=== PATIENT | female | born 1980 | race Caucasian/White ===

== ENCOUNTER 2021-06-11 03:14 | Emergency (ER) | payer MEDICAID ==
[~2021-06-11] VITALS: Ht 157.5 cm; Wt 99.8 kg
[~2021-06-11 03:14] MED LIST: ALB5IS; ATEN-60; OMEP20TA44
[2021-06-11] MEDS ORDERED: PANTOPRAZOLE 40 MG/10 ML VIAL INJ IV ONE (03:30)
[2021-06-11] MEDS ORDERED: SODIUM CHLORIDE 0.9% 1,000 ML IV ONE (03:30)
[2021-06-11] MEDS ORDERED: ONDANSETRON HCL 4 MG/2 ML VIAL IV ONE (03:30)
[2021-06-11] MEDS ORDERED: LORazepam 2MG/ML-1ML VIAL ONE (03:47)
[2021-06-11] MEDS ORDERED: HALOPERIDOL LACTATE 5 MG/ML INJ VIAL IV ONE (04:00)
[2021-06-11 05:06] LABS: Albumin 3.3 g/dL (3.4-5.0); BUN/Creatinine Ratio 8.8; Calcium 9.5 mg/dL (8.5-10.1); Potassium 5.5 mmol/L (3.5-5.1)
[2021-06-11 05:09] LABS: Bilirubin, Total 0.7 mg/dL (0.2-1.0); Total Protein 6.7 g/dL (6.4-8.2)
[2021-06-11] MEDS ORDERED: ONDA-144 PO (05:53)
[2021-06-11 06:30] VITALS: BP 135/75
[2021-06-11 06:47] LABS: Basophils # (auto) 0 10 ^3/uL (0-0.2); Basophils % (auto) 0.3 % (0.0-2.0); Eosinophils # (auto) 0 10 ^3/uL (0-0.8); Hemoglobin 14.6 g/dL (12.2-16.2); Lymphocytes % (auto) 8.4 % (10.0-50.0); Mean Corpuscular Hemoglobin 29.9 pg (28.0-32.0); Mean Corpuscular Hgb Conc. 33.1 g/dL (32.0-36.0); Mean Corpuscular Volume 90.4 fL (80.0-100.0); Monocytes # (auto) 1.3 10 ^3/uL (0-1.3); Monocytes % (auto) 10.8 % (0.0-12.0); Neutrophils # (auto) 9.4 10 ^3/uL (1.6-8.6); Neutrophils % (auto) 80.5 % (37.0-80.0); Red Blood Cells 4.87 10^6/uL (4.0-5.20); Red Cell Distribution Width 16.6 % (11.8-14.3); White Blood Cell 11.7 10^3/uL (4.4-10.8)
== END 2021-06-11 07:00 | disposition home or self-care (01) ==
LOC: EDBD 03:14 → ER 03:20
DX: R56.9 Unspecified convulsions (principal); R11.2 Nausea with vomiting, unspecified; I10 Essential (primary) hypertension; I48.91 Unspecified atrial fibrillation; J45.909 Unspecified asthma, uncomplicated; F17.210 Nicotine dependence, cigarettes, uncomplicated; Z20.822 Contact with and (suspected) exposure to COVID-19
CPT/HCPCS: 36415; 80053; 80164; 83690; 84702; 87426; 96361; 96374; 96375; 99284; C9113; J1630; J2405; J7030

== ENCOUNTER 2021-08-04 13:09 | Emergency (ER) | payer MEDICAID ==
[~2021-08-04] VITALS: Ht 157.5 cm; Wt 99.3 kg
[~2021-08-04 13:09] MED LIST changes: +ONDA-144 PO
[2021-08-04 14:27] LABS: Basophils # (auto) 0.1 10 ^3/uL (0-0.2); Eosinophils # (auto) 0 10 ^3/uL (0-0.8); Eosinophils % (auto) 0.7 % (0.0-7.0); Hematocrit 41.4 % (36.0-46.0); Hemoglobin 13.9 g/dL (12.2-16.2); Lymphocytes # (auto) 1.3 10 ^3/uL (0.4-5.4); Lymphocytes % (auto) 26.3 % (10.0-50.0); Mean Corpuscular Hemoglobin 29.9 pg (28.0-32.0); Mean Corpuscular Hgb Conc. 33.7 g/dL (32.0-36.0); Mean Corpuscular Volume 88.7 fL (80.0-100.0); Monocytes # (auto) 0.5 10 ^3/uL (0-1.3); Monocytes % (auto) 10.6 % (0.0-12.0); Neutrophils # (auto) 3.1 10 ^3/uL (1.6-8.6); Neutrophils % (auto) 61.4 % (37.0-80.0); Nucleated Red Blood Cells % 0.1 %; Red Blood Cells 4.66 10^6/uL (4.0-5.20); Red Cell Distribution Width 16.1 % (11.8-14.3)
[2021-08-04 15:10] LABS: Chloride 104 mmol/L (98-107); Potassium 3.6 mmol/L (3.5-5.1); Sodium 140 mmol/L (136-145)
[2021-08-04 15:14] LABS: Alanine Aminotransferase 21 U/L (13-56); Albumin 2.7 g/dL (3.4-5.0); Anion Gap 7 (5-15); Aspartate Aminotransferase 22 U/L (15-37); BUN/Creatinine Ratio 9.8; Blood Urea Nitrogen 10 mg/dL (7-18); Calcium 8.4 mg/dL (8.5-10.1); Carbon Dioxide 29 mmol/L (21-32); GFR African American 78 mL/min; GFR Non-African American 64 mL/min; Glucose 80 mg/dL (74-106)
[2021-08-04 15:19] LABS: Alkaline Phosphatase 45 U/L (45-117); Bilirubin, Total 0.3 mg/dL (0.2-1.0)
[2021-08-04] MEDS ORDERED: PRED1PAK9 PO (16:33)
[2021-08-04 16:37] LABS: Urine Bacteria FEW /hpf (None Seen); Urine Blood Negative /uL (Negative); Urine Mucus FEW (None Seen); Urine Specific Gravity 1.041 (1.001-1.035); Urine WBC 3 /hpf (0 - 5)
[2021-08-04] MEDS ORDERED: IPRATROPIUM BROM 0.5 MG/2.5ML INH SOL NEB ONE (16:45)
[2021-08-04] MEDS ORDERED: methylPREDNISolone SOD SUCC 125 MG/2 ML VL IM ONE (16:45)
[2021-08-04] MEDS ORDERED: ALBUTEROL SULF 2.5 MG/0.5ML(0.5%) NEB SOLN NEB ONE (16:45)
[2021-08-04 17:09] VITALS: BP 136/70
== END 2021-08-04 17:28 | disposition home or self-care (01) ==
LOC: ER 13:09
DX: J45.901 Unspecified asthma with (acute) exacerbation (principal); E44.0 Moderate protein-calorie malnutrition; F17.210 Nicotine dependence, cigarettes, uncomplicated; I10 Essential (primary) hypertension; Z68.41 Body mass index [BMI] 40.0-44.9, adult
CPT/HCPCS: 36415; 71046; 80053; 81001; 83880; 84484; 85025; 94640; 96372; 99284; J2930; J7644

== ENCOUNTER 2021-10-28 14:17 | Emergency (ER) | payer MEDICAID ==
[~2021-10-28] VITALS: Ht 160 cm; Wt 81.6 kg
[~2021-10-28 14:17] MED LIST changes: +PRED1PAK9 PO
[2021-10-28] MEDS ORDERED: LORazepam 2MG/ML-1ML VIAL IV ONE (14:45)
[2021-10-28] MEDS ORDERED: SODIUM CHLORIDE 0.9% 1,000 ML IV ONE ×2 (14:45)
[2021-10-28 14:56] LABS: Basophils # (auto) 0 10 ^3/uL (0-0.2); Basophils % (auto) 0.3 % (0.0-2.0); Eosinophils # (auto) 0 10 ^3/uL (0-0.8); Eosinophils % (auto) 0.3 % (0.0-7.0); Hemoglobin 15.2 g/dL (12.2-16.2); Lymphocytes # (auto) 1.4 10 ^3/uL (0.4-5.4); Lymphocytes % (auto) 18.9 % (10.0-50.0); Mean Corpuscular Hemoglobin 30.6 pg (28.0-32.0); Mean Corpuscular Volume 92.6 fL (80.0-100.0); Monocytes # (auto) 0.8 10 ^3/uL (0-1.3); Neutrophils # (auto) 5.3 10 ^3/uL (1.6-8.6); Neutrophils % (auto) 69.5 % (37.0-80.0); Nucleated Red Blood Cells % 0.1 %; Red Blood Cells 4.97 10^6/uL (4.0-5.20); White Blood Cell 7.7 10^3/uL (4.4-10.8)
[2021-10-28 15:25] LABS: Albumin 3.3 g/dL (3.4-5.0); Potassium 3.1 mmol/L (3.5-5.1)
[2021-10-28 15:31] LABS: BUN/Creatinine Ratio 8.7; Bilirubin, Total 0.8 mg/dL (0.2-1.0); Total Protein 6.5 g/dL (6.4-8.2)
[2021-10-28] MEDS ORDERED: POTASSIUM EFFERVESENT TAB 25 MEQ PO ONE (16:00)
[2021-10-28] MEDS ORDERED: PROMETHAZINE HCL 25 MG/ML 1ML IV ONE (17:30)
[2021-10-28 18:00] VITALS: BP 110/67
== END 2021-10-28 18:16 | disposition home or self-care (01) ==
LOC: ER 14:17 → EDBD 14:17 → ER 18:16
DX: E87.6 Hypokalemia (principal); E44.1 Mild protein-calorie malnutrition; Z68.39 Body mass index [BMI] 39.0-39.9, adult
CPT/HCPCS: 36415; 71045; 80053; 85025; 96361; 96374; 96375; 99284; J2060; J2550; J7030

== ENCOUNTER 2022-11-13 15:36 | Emergency (ER) | payer MEDICAID ==
[~2022-11-13] VITALS: Ht 157.5 cm; Wt 116.0 kg
[2022-11-13] MEDS ORDERED: LORazepam 2MG/ML-1ML VIAL ONE (15:44)
[2022-11-13] MEDS ORDERED: LORazepam 2MG/ML-1ML VIAL IV ONE (15:45)
[2022-11-13 16:38] LABS: Basophils # (auto) 0 10 ^3/uL (0-0.2); Basophils % (auto) 0.1 % (0.0-2.0); Eosinophils # (auto) 0 10 ^3/uL (0-0.8); Hematocrit 44.5 % (36.0-46.0); Hemoglobin 14.8 g/dL (12.2-16.2); Lymphocytes # (auto) 0.5 10 ^3/uL (0.4-5.4); Lymphocytes % (auto) 5.9 % (10.0-50.0); Mean Corpuscular Hemoglobin 29.4 pg (28.0-32.0); Mean Corpuscular Hgb Conc. 33.3 g/dL (32.0-36.0); Mean Corpuscular Volume 88.2 fL (80.0-100.0); Monocytes # (auto) 0.2 10 ^3/uL (0-1.3); Monocytes % (auto) 2.3 % (0.0-12.0); Neutrophils # (auto) 8.4 10 ^3/uL (1.6-8.6); Neutrophils % (auto) 91.7 % (37.0-80.0); Nucleated Red Blood Cells % 0.1 %; Red Blood Cells 5.05 10^6/uL (4.0-5.20); White Blood Cell 9.2 10^3/uL (4.4-10.8)
[2022-11-13 16:40] VITALS: PULSE 80; RESP 20; O2SAT 92
[2022-11-13 16:55] LABS: Albumin 4.2 g/dL (3.4-5.0); Calcium 9.8 mg/dL (8.5-10.1); Potassium 3.2 mmol/L (3.5-5.1)
[2022-11-13 17:01] LABS: BUN/Creatinine Ratio 12.5 (10.0-20.0); Bilirubin, Total 0.7 mg/dL (0.2-1.0); Total Protein 7.8 g/dL (6.4-8.2)
[2022-11-13] MEDS ORDERED: ONDANSETRON HCL 4 MG/2 ML VIAL IV ONE (17:15)
[2022-11-13] MEDS ORDERED: MAALOX PLUS or MAALOX 30 ML PO ONE (17:15)
[2022-11-13] MEDS ORDERED: SODIUM CHLORIDE 0.9% 1,000 ML IVB ONE (17:15)
[2022-11-13] MEDS ORDERED: diphenhdrAMINE HCL 50 MG/1 ML VL IV ONE (17:15)
[2022-11-13] MEDS ORDERED: FAMOTIDINE (10MG/ML) 2ML VL IV ONE (17:15)
[2022-11-13 17:42] LABS: Blood Alcohol < 3.0 mg/dL (<10)
[2022-11-13 18:15] LABS: INR 1.14 (0.9-1.15)
[2022-11-13 19:03] LABS: Urine Bacteria NONE SEEN /hpf (None Seen); Urine Blood Negative /uL (Negative); Urine Mucus FEW (None Seen); Urine Specific Gravity 1.031 (1.001-1.035); Urine WBC 2 /hpf (0 - 5)
[2022-11-13 19:25] VITALS: PULSE 93; RESP 20; O2SAT 96
[2022-11-13 19:47] LABS: Alcohol, Urine < 3.0 mg/dL (0-10); Amphetamine Screen, Urine NEGATIVE (NEGATIVE); Barbiturate Scree,Urine NEGATIVE (NEGATIVE); Benzodiazephine Screen, Urine NEGATIVE (NEGATIVE); Cannabinoid Screen, Urine POSITIVE (NEGATIVE); Cocaine Screen, Urine NEGATIVE (NEGATIVE)
[2022-11-13 19:54] LABS: Opiate Scree,Urine NEGATIVE (NEGATIVE); Phencyclidine Screen, Urine NEGATIVE (NEGATIVE)
[2022-11-13 20:00] VITALS: TEMP 97.9
[2022-11-13] MEDS ORDERED: POTASSIUM EFFERVESENT TAB 25 MEQ PO ONE (21:45)
[2022-11-13 22:00] VITALS: BP 136/81; PULSE 88; RESP 12; O2SAT 96
== END 2022-11-13 23:13 | disposition home or self-care (01) ==
LOC: ER 15:36
DX: R56.9 Unspecified convulsions (principal); F41.9 Anxiety disorder, unspecified; R11.0 Nausea; R07.89 Other chest pain; E87.6 Hypokalemia; E66.9 Obesity, unspecified; I10 Essential (primary) hypertension; I48.91 Unspecified atrial fibrillation; J45.909 Unspecified asthma, uncomplicated; F17.210 Nicotine dependence, cigarettes, uncomplicated; Z68.42 Body mass index [BMI] 45.0-49.9, adult; Z79.899 Other long term (current) drug therapy; Z88.0 Allergy status to penicillin; Z88.2 Allergy status to sulfonamides; Z88.8 Allergy status to other drugs, medicaments and biological substances
CPT/HCPCS: 36415; 71045; 80053; 80307; 80320; 81001; 83735; 85025; 85610; 85730; 96361; 96374; 96375; 99285; J1200; J2060; J2405; J3490

== ENCOUNTER 2023-04-01 14:41 | Emergency (ER) | payer MEDICAID ==
[~2023-04-01] VITALS: Ht 157.5 cm; Wt 114.0 kg
[2023-04-01 15:35] LABS: Urine Bacteria FEW /hpf (None Seen); Urine Blood 2+ /uL (Negative); Urine Clarity HAZY (Clear); Urine Color Yellow (Yellow); Urine Hyaline Cast FEW /lpf (0 - 2); Urine Mucus FEW (None Seen); Urine Protein, UAD 1+ (Negative); Urine WBC 11 /hpf (0 - 5)
[2023-04-01] MEDS ORDERED: HYDR-4902 PO (16:27)
[2023-04-01] MEDS ORDERED: BACL10TA PO (16:27)
[2023-04-01] MEDS ORDERED: NABU-72 PO (16:27)
[2023-04-01] MEDS ORDERED: CEPH500C PO (16:33)
[2023-04-01 16:42] VITALS: BP 110/62; PULSE 95; RESP 18; TEMP 97.8; O2SAT 98
== END 2023-04-01 16:44 | disposition home or self-care (01) ==
LOC: ER 14:41
DX: M54.16 Radiculopathy, lumbar region (principal); N39.0 Urinary tract infection, site not specified; F17.210 Nicotine dependence, cigarettes, uncomplicated; J45.909 Unspecified asthma, uncomplicated; Z88.0 Allergy status to penicillin; Z88.2 Allergy status to sulfonamides; Z88.6 Allergy status to analgesic agent
CPT/HCPCS: 81001

== ENCOUNTER 2024-12-21 13:28 | Emergency (ER) | payer MEDICAID ==
[~2024-12-21] VITALS: Ht 157.5 cm; Wt 87.0 kg
[~2024-12-21 13:28] MED LIST changes: +BACL10TA PO; +CEPH500C PO; +HYDR-4902 PO; +NABU-72 PO; +PRED20TA2 PO; +TRAM50TA2 PO
--- NOTE | 2024-12-21 15:35 | ED.PDOC ---
Back pain HPI HPI Comments 43 y.o female presents to the ED for a chief complaint of lower back pain s/p bending x 1 day ago. Patient reports a tightness sensation that radiates to bilateral lower back region and travels to the mid back as well. Patient had this similar episode occur multiple years ago but denies any injury or surgical intervention. She also denies any recent heavy lifting, twisting, falls, leg pain, numbness sensation, dysuria, hematuria, fever, chills. Chief Complaint: Back Pain Time Seen by MD: 15:15 Primary Care Provider: KILEY Reviewed Notes: Nurses Notes, Medications, Allergies Allergies: Coded Allergies: Fluoxetine (Verified Allergy, Severe, 07/24/11) Sulfamethoxazole w/Trimethoprim (Verified Allergy, Severe, 07/24/11) Bupropion (Verified Allergy, Mild, 06/04/10) Erythromycin (Verified Allergy, Mild, 06/04/10) Olanzapine (Verified Allergy, Mild, 06/04/10) Penicillins (Verified Allergy, Mild, 06/04/10) Sertraline (Verified Allergy, Mild, 06/04/10) Home Meds Active Scripts Prednisone (Prednisone) 20 Mg Tab, 40 MG PO DAILY, #20 MG Prov:SEAN MENDOZA 04/07/23 Tramadol Hcl (Tramadol Hcl) 50 Mg Tab, 50 MG PO BID, #20 TAB Prov:SEAN MENDOZA 04/07/23 Cephalexin Monohydrate (Cephalexin) 500 Mg Cap, 1 CAP PO TID for 7 Days, #21 CAP Prov:KATELIN GARCIAS 04/01/23 Nabumetone (Nabumetone) 500 Mg Tab, 1 TAB PO BID PRN, #20 TAB Prov:KATELIN GARCIAS 04/01/23 Baclofen (Baclofen) 10 Mg Tab, 10 MG PO TID PRN, #15 TAB Prov:KATELIN GARCIAS 04/01/23 Hydrocodone-Acetaminophen (Hydrocodone Bitartrate/AC 5-325 mg) 1 Tab Tab, 1 TAB PO Q6HP PRN for 5 Days, #12 TAB Prov:KATELIN GARCIAS 04/01/23 Prednisone (Prednisone) 10 Mg Simba, 10 MG PO DAILY for 10 Days, #10 PACK Prov:HAMMAD ZUNIGA MD 08/04/21 Ondansetron (Zofran) 4 Mg Tab, 4 MG PO Q6HP PRN, #20 MG Prov:VIKAS RICE DO 06/11/21 Reported Medications Albuterol Sulfate (Ventolin) 2.5 Mg/0.5 Ml Nb 07/24/11 Omeprazole ([facility] Omeprazole) 20 Mg Tab 07/24/11 Atenolol (Atenolol) 25 Mg Tab 07/24/11 Information Source: Patient Mode of Arrival: Ambulatory Timing: Days (1) Duration: Since onset Location of Back pain: (B) Lower back, (B) Lumbar Quality: Sharp Onset: Bending Past Medical History PAST MEDICAL HISTORY: AFIB, Anxiety, Asthma, Depression, HTN, Seizures Surgical History: Denies all surgeries MAPPING PILOT History: No Pertinent MAPPING PILOT History Family History Family History: Reviewed,noncontributory to illness Social History Smoker: Cigarettes Alcohol: Denies ETOH Use Drugs: Other Lives In: Home Constitutional: denies: chills, diaphoresis, fatigue, fever, malaise, sweats, weakness, others EENTM: denies: blurred vision, double vision, ear bleeding, ear discharge, ear drainage, ear pain, ear ringing, eye pain, eye redness, hearing loss, mouth pain, mouth swelling, nasal discharge, nose bleeding, nose congestion, nose pain, photophobia, tearing, throat pain, throat swelling, voice changes, others Respiratory: denies: cough, hemoptysis, orthopnea, SOB at rest, shortness of breath, SOB with excertion, stridor, wheezing, others Cardiovascular: denies: chest pain, dizzy spells, diaphoresis, Dyspnea on exertion, edema, irregular heart beat, left arm pain, lightheadedness, palpitations, PND, syncope, others Gastrointestinal: denies: abdomen distended, abdominal pain, blood streaked bowels, constipated, diarrhea, dysphagia, difficulty swallowing, hematemesis, melena, nausea, poor appetite, poor fluid intake, rectal bleeding, rectal pain, vomiting, others Genitourinary: denies: abnormal vagina bleeding, burning, dyspareunia, dysuria, flank pain, frequency, hematuria, incontinence, pain, , vagina discharge, urgency, others Neurological: denies: dizziness, fainting, headache, left sided numbness, left sided weakness, numbness, paresthesia, pre-existing deficit, right sided numbness, right sided weakness, seizure, speech problems, tingling, tremors, weakness, others Musculoskeletal: reports: back pain; denies: gout, joint pain, joint swelling, muscle pain, muscle stiffness, neck pain, others Integumetry: denies: bruises, change in color, change in hair/nails, dryness, laceration, lesions, lumps, rash, wounds, others Allergic/Immunocompromised: denies: Difficulty Healing, Frequent Infections, Hives, Itching, others Hematologic/Lymphatic: denies: anemia, blood clots, easy bleeding, easy bruising, swollen glands, others Endocrine: denies: excessive hunger, excessive sweating, excessive thirst, excessive urination, flushing, intolerance to cold, intolerance to heat, unexplained weight gain, unexplained weight loss, others Psychiatric: denies: anxiety, bipolar disorder, depression, hopeless, panic disorder, schizophrenia, sleepless, suicidal, others All Other Systems: Reviewed and Negative Physical Exam General Appearance: No Apparent Distress, Normal HEENT: Normal ENT Inspection, Pharynx Normal, TMs Normal Neck: Full Range of Motion, Non-Tender, Normal, Normal Inspection Respiratory: Chest Non-Tender, Lungs Clear, No Accessory Muscle Use, No Respiratory Distress, Normal Breath Sounds Cardiovascular: No Edema, No JVD, No Murmur, No Gallop, Normal Peripheral Pulses, Regular Rate/Rhythm Breast Exam: Deferred Gastrointestinal: No Organomegaly, Non Tender, No Pulsatile Mass, Normal Bowel Sounds, Soft Genitalia: Deferred Pelvic: Deferred Rectal: Deferred Extremities: No calf tenderness, Normal capillary refill, Normal inspection, Normal range of motion, Non-tender, No pedal edema Musculoskeletal : Location: Bilateral Extremity Location: Back Apperance: Tenderness: Moderate (lower back ) Neurologic: Alert, restorer paper and prints II-XII nml as Tested, No Motor Deficits, Normal Affect, Normal Mood, No Sensory Deficits Cerebellar Function: Normal Reflexes: Normal Skin: Dry, Normal Color, Warm Lymphatic: No Adenopathy Was a procedure done? Was a procedure done?: No Back Pain Differential Dx Differential Diagnosis: DJD, Musculoskeletal Pain, Pyelonephritis, Strain X-Ray, Labs, Meds, VS Vital Signs Date Time Temp Pulse Resp B/P (MAP) Pulse Ox O2 Delivery O2 Flow Rate FiO2 12/21/24 13:30 98.3 78 18 105/63 95 98.3 X-Ray, Labs, Meds, VS Comment Imaging was reviewed by this provider, there is no obvious pathological or acute disease process. Pending radiology review Labs were reviewed by this provider, no abnormalities Vital signs reviewed by this provider, clinically stable Time of 1ST Reevaluation: 15:35 Reevaluation 1ST: Unchanged Patient Education/Counseling: Diagnosis, Treatment, Prognosis, Need For Follow Up (Follow up with PCP in the next 2-3 days. Return to the emergency department if symptoms worsen.) Family Education/Counseling: No Family Present SEPSIS Sepsis Screen Date sepsis recognized/suspect: Dec 21, 2024 Time Sepsis recognized/suspect: 1330 Recent Procedure: No On Antibiotic Therapy: No Respiratory Rate >20: No Heart Rate >90: Yes Temp<36 C (96.8 F) or >38.3 C: No SBP <90 or MAP <65 mmHG: No New Acute Mental Status Change: No Is the patient on CPAP, BIPAP,: No Vital Signs Date Time Temp Pulse Resp B/P (MAP) Pulse Ox O2 Delivery O2 Flow Rate FiO2 12/21/24 13:30 98.3 78 18 105/63 95 98.3 Departure 1 Departure Time of Disposition: 15:47 Impression: Primary Impression: Lumbar sprain Qualified Codes: S33.5XXA - Sprain of ligaments of lumbar spine, initial encounter Disposition: HOME / SELF CARE / HOMELESS Condition: Fair e-Prescriptions Hydrocodone-Acetaminophen (Hydrocodone Bitartrate/AC 5-325 mg) 1 Tab Tab 1 TAB PO TID PRN, #20 TAB Prov: CELESTE PARKERP 12/21/24 Cyclobenzaprine Hcl (Cyclobenzaprine Hcl) 10 Mg Tab 10 MG PO BID PRN, #30 TAB Prov: CELESTE PARKERP 12/21/24 Discharged With: Self Critical Care Note Critical Care Time?: No Stability Stability form required: No I personally scribed for CELESTE PARKER ([email or web address]) on 12/21/24 at 15:35. Electronically submitted by Mone García ([facility]). CELESTE PARKER Dec 21, 2024 15:35
[2024-12-21] MEDS ORDERED: HYDR-4902 PO (15:48)
[2024-12-21] MEDS ORDERED: CYCL-839 PO (15:48)
[2024-12-21] MEDS: methylPREDNISolone SOD SUCC 125 MG/2 ML VL IM ONE (16:07)
[2024-12-21] MEDS: KETOROLAC TROMETH 30 MG/ML 1ML VIAL IM ONE (16:07)
[2024-12-21 16:09] VITALS: BP 126/83; PULSE 73; RESP 16; TEMP 97.3; O2SAT 97
== END 2024-12-21 16:25 | disposition home or self-care (01) ==
LOC: ER 13:28
DX: S33.5XXA Sprain of ligaments of lumbar spine, initial encounter (principal); I10 Essential (primary) hypertension; I48.91 Unspecified atrial fibrillation; J45.909 Unspecified asthma, uncomplicated; F17.210 Nicotine dependence, cigarettes, uncomplicated; Z88.0 Allergy status to penicillin; Z88.1 Allergy status to other antibiotic agents; Z88.2 Allergy status to sulfonamides; Z88.8 Allergy status to other drugs, medicaments and biological substances
CPT/HCPCS: 96372; 99284; J1885; J2919

== ENCOUNTER 2025-04-21 10:06 | Emergency (ER) | payer MEDICAID ==
[~2025-04-21] VITALS: Ht 157.5 cm; Wt 96.0 kg
[~2025-04-21 10:06] MED LIST changes: +CYCL-839 PO
[2025-04-21 10:15] VITALS: BP 109/71; PULSE 105; RESP 18; TEMP 97.5; O2SAT 97
--- NOTE | 2025-04-21 11:43 | ED.PDOC ---
History of Present Illness HPI Comments 44-year-old female presents to the ER with prior medical history of AFib, anxiety, depression, hypertension, seizure, asthma, C diff, mitral valve prolapse and the chief complaint of shortness a breath. Reports on having had a sudden onset of shortness a breath this morning associated with crackling. Patient notes on using her inhaler with no relief. Denies any other symptoms at this time. Denies chills, fever, N/V/D, CP. No other associated symptoms, modifiers, recent injuries or sick contacts present at this time. Chief Complaint: Shortness of Breath Time Seen by MD: 11:10 Primary Care Provider: KILEY Reviewed Notes: Nurses Notes, Medications, Allergies Allergies: Coded Allergies: Fluoxetine (Verified Allergy, Severe, 07/24/11) Sulfamethoxazole w/Trimethoprim (Verified Allergy, Severe, 07/24/11) Bupropion (Verified Allergy, Mild, 06/04/10) Erythromycin (Verified Allergy, Mild, 06/04/10) Olanzapine (Verified Allergy, Mild, 06/04/10) Penicillins (Verified Allergy, Mild, 06/04/10) Sertraline (Verified Allergy, Mild, 06/04/10) Home Meds Active Scripts Hydrocodone-Acetaminophen (Hydrocodone Bitartrate/AC 5-325 mg) 1 Tab Tab, 1 TAB PO TID PRN, #20 TAB Prov:CELESTE COVARRUBIAS [facility] 12/21/24 Cyclobenzaprine Hcl (Cyclobenzaprine Hcl) 10 Mg Tab, 10 MG PO BID PRN, #30 TAB Prov:CELESTE COVARRUBIASP 12/21/24 Prednisone (Prednisone) 20 Mg Tab, 40 MG PO DAILY, #20 MG Prov:SEAN MENDOZA 04/07/23 Tramadol Hcl (Tramadol Hcl) 50 Mg Tab, 50 MG PO BID, #20 TAB Prov:SEAN MENDOZA 04/07/23 Cephalexin Monohydrate (Cephalexin) 500 Mg Cap, 1 CAP PO TID for 7 Days, #21 CAP Prov:KATELIN GARCIASP 04/01/23 Nabumetone (Nabumetone) 500 Mg Tab, 1 TAB PO BID PRN, #20 TAB Prov:KATELIN GARCIASP 04/01/23 Baclofen (Baclofen) 10 Mg Tab, 10 MG PO TID PRN, #15 TAB Prov:KATELIN GARCIAS CHECK CLERK 04/01/23 Hydrocodone-Acetaminophen (Hydrocodone Bitartrate/AC 5-325 mg) 1 Tab Tab, 1 TAB PO Q6HP PRN for 5 Days, #12 TAB Prov:KATELIN GARCIAS CHECK CLERK 04/01/23 Prednisone (Prednisone) 10 Mg Simba, 10 MG PO DAILY for 10 Days, #10 PACK Prov:HAMMAD ZUNIGA MD 08/04/21 Ondansetron (Zofran) 4 Mg Tab, 4 MG PO Q6HP PRN, #20 MG Prov:VIKAS RICE DO 06/11/21 Reported Medications Albuterol Sulfate (Ventolin) 2.5 Mg/0.5 Ml Nb 07/24/11 Omeprazole ([facility] Omeprazole) 20 Mg Tab 07/24/11 Atenolol (Atenolol) 25 Mg Tab 07/24/11 Information Source: Patient Mode of Arrival: Ambulatory Severity: Moderate Timing: Hours Duration: Since onset, Hours Prehospital treatment: None Past Medical History PAST MEDICAL HISTORY: AFIB, Anxiety, Asthma, Depression, HTN, Seizures Past Medical History (Other): C diff, mitral valve prolapse Surgical History: Denies all surgeries HEAD OF LOSS PREVENTION History: No Pertinent HEAD OF LOSS PREVENTION History Family History Family History: Reviewed,noncontributory to illness, Unknown Social History Smoker: Cigarettes Alcohol: Denies ETOH Use Drugs: Other Lives In: Home Constitutional: denies: chills, diaphoresis, fatigue, fever, malaise, sweats, weakness, others EENTM: denies: blurred vision, double vision, ear bleeding, ear discharge, ear drainage, ear pain, ear ringing, eye pain, eye redness, hearing loss, mouth pain, mouth swelling, nasal discharge, nose bleeding, nose congestion, nose pain, photophobia, tearing, throat pain, throat swelling, voice changes, others Respiratory: reports: shortness of breath; denies: cough, hemoptysis, orthopnea, SOB at rest, SOB with excertion, stridor, wheezing, others Cardiovascular: denies: chest pain, dizzy spells, diaphoresis, Dyspnea on exertion, edema, irregular heart beat, left arm pain, lightheadedness, palpitations, PND, syncope, others Gastrointestinal: denies: abdomen distended, abdominal pain, blood streaked bowels, constipated, diarrhea, dysphagia, difficulty swallowing, hematemesis, melena, nausea, poor appetite, poor fluid intake, rectal bleeding, rectal pain, vomiting, others Genitourinary: denies: abnormal vagina bleeding, burning, dyspareunia, dysuria, flank pain, frequency, hematuria, incontinence, pain, , vagina di scharge, urgency, others Neurological: denies: dizziness, fainting, headache, left sided numbness, left sided weakness, numbness, paresthesia, pre-existing deficit, right sided numbness, right sided weakness, seizure, speech problems, tingling, tremors, weakness, others Musculoskeletal: denies: back pain, gout, joint pain, joint swelling, muscle pain, muscle stiffness, neck pain, others Integumetry: denies: bruises, change in color, change in hair/nails, dryness, laceration, lesions, lumps, rash, wounds, others Allergic/Immunocompromised: denies: Difficulty Healing, Frequent Infections, Hives, Itching, others Hematologic/Lymphatic: denies: anemia, blood clots, easy bleeding, easy bruising, swollen glands, others Endocrine: denies: excessive hunger, excessive sweating, excessive thirst, excessive urination, flushing, intolerance to cold, intolerance to heat, unexplained weight gain, unexplained weight loss, others Psychiatric: denies: anxiety, bipolar disorder, depression, hopeless, panic disorder, schizophrenia, sleepless, suicidal, others All Other Systems: Reviewed and Negative Physical Exam General Appearance: Moderate Distress, Normal HEENT: Normal ENT Inspection, Pharynx Normal, TMs Normal Neck: Full Range of Motion, Non-Tender, Normal, Normal Inspection Respiratory: Chest Non-Tender, Lungs Clear, No Accessory Muscle Use, No Respiratory Distress, Normal Breath Sounds Cardiovascular: No Edema, No JVD, No Murmur, No Gallop, Normal Peripheral Pulses, Regular Rate/Rhythm Breast Exam: Deferred Gastrointestinal: No Organomegaly, Non Tender, No Pulsatile Mass, Normal Bowel Sounds, Soft Genitalia: Deferred Pelvic: Deferred Rectal: Deferred Extremities: No calf tenderness, Normal capillary refill, Normal inspection, Normal range of motion, Non-tender, No pedal edema Musculoskeletal : Apperance: Normal Neurologic: Alert, carrier washer II-XII nml as Tested, No Motor Deficits, Normal Affect, Normal Mood, No Sensory Deficits Cerebellar Function: Normal Reflexes: Normal Skin: Dry, Normal Color, Warm Peripheral Pulses: 3+ Radial (R), 3+ Radial (L) Lymphatic: No Adenopathy Was a procedure done? Was a procedure done?: No Differential Dx Considerations may include: Anxiety X-Ray, Labs, Meds, VS Vital Signs Date Time Temp Pulse Resp B/P (MAP) Pulse Ox O2 Delivery O2 Flow Rate FiO2 04/21/25 10:15 97.5 105 18 109/71 97 97.5 Patient alert. Vitals stable. Answering questions. Saturation pristine on room air. No leg swelling. No shortness a breath. No increase in respiratory rate. No sign of any acute process. Heart rate re-evaluated on clinically is within normal limits. Was told to follow up with her primary care physician. Was told to come back if there is any problem. Time of 1ST Reevaluation: 11:40 Reevaluation 1ST: Improved Patient Education/Counseling: Diagnosis, Treatment, Prognosis Family Education/Counseling: No Family Present SEPSIS Sepsis Screen Date sepsis recognized/suspect: Apr 21, 2025 Time Sepsis recognized/suspect: 1015 Recent Procedure: No On Antibiotic Therapy: No Respiratory Rate >20: No Heart Rate >90: No Temp<36 C (96.8 F) or >38.3 C: No SBP <90 or MAP <65 mmHG: No New Acute Mental Status Change: No Is the patient on CPAP, BIPAP,: No Vital Signs Date Time Temp Pulse Resp B/P (MAP) Pulse Ox O2 Delivery O2 Flow Rate FiO2 04/21/25 10:15 97.5 105 18 109/71 97 97.5 Departure 1 Departure Time of Disposition: 14:20 Impression: Primary Impression: Anxiety Disposition: 07 LEFT AWOL/ELOPED Condition: Good Discharged With: Self Critical Care Note Critical Care Time?: No Stability Stability form required: No I personally scribed for HAMMAD ZUNIGA MD ([email or web address]) on 04/21/25 at 11:43. Electronically submitted by Bonifacio Vo ([email or web address]). HAMMAD ZUNIGA MD Apr 21, 2025 11:43
== END 2025-04-21 12:29 | disposition home or self-care (01) ==
LOC: ER 10:06
DX: F41.9 Anxiety disorder, unspecified (principal); F17.210 Nicotine dependence, cigarettes, uncomplicated; I10 Essential (primary) hypertension; J45.909 Unspecified asthma, uncomplicated; Z88.8 Allergy status to other drugs, medicaments and biological substances; Z88.2 Allergy status to sulfonamides; Z88.1 Allergy status to other antibiotic agents; Z88.0 Allergy status to penicillin